=== PATIENT | female | born 1970 | race Caucasian/White ===

== ENCOUNTER 2017-05-31 05:30 | Day surgery (SDC) | payer BC ==
[~2017-05-31] VITALS: Ht 167.6 cm; Wt 80.7 kg
[2017-05-31] MEDS ORDERED: KETOROLAC TROMETHAMINE 30 MG VIAL IVP ONE (07:16)
[2017-05-31] MEDS ORDERED: PROPOFOL 200MG/ 20ML VIAL (DIPRIVAN) IV ONE (07:16)
[2017-05-31] MEDS ORDERED: SEVOFLURANE 15 MIN GAS INH ONE (07:16)
[2017-05-31] MEDS ORDERED: BUPIVACAINE /EPINEPHRINE/PF 0.5% 30 ML VIAL INJ ONE (07:16)
[2017-05-31] MEDS ORDERED: fentaNYL CITRATE/PF 100 MCG/2 ML AMP IVP ONE (07:16)
[2017-05-31] MEDS ORDERED: DEXAMETHASONE SOD PHOSPHATE 4 MG/ML VIAL IVP ONE (07:16)
[2017-05-31] MEDS ORDERED: MIDAZOLAM HCL 5 MG/5 ML VIAL IVP ONE (07:16)
[2017-05-31] MEDS ORDERED: LR 1,000 ML IV.SOLN IV ONE (07:16)
[2017-05-31] MEDS ORDERED: NS 1000 ML BAG IV ONE (07:16)
[2017-05-31] MEDS ORDERED: LR 1,000 ML IV ONE (08:21)
[2017-05-31] MEDS ORDERED: NALOXONE HCL 0.4 MG/ML AMP (NARCAN) IVP PRN (08:30)
[2017-05-31] MEDS ORDERED: NALBUPHINE HCL 10 MG/ML AMP IVP PRN (08:30)
[2017-05-31] MEDS ORDERED: DIPHENHYDRAMINE INJ 50 MG/ML VIAL IVP PRN (08:30)
[2017-05-31] MEDS ORDERED: ONDANSETRON HCL 4 MG/2 ML VIAL IVP PRN ×3 (08:30→10:00)
[2017-05-31] MEDS ORDERED: ePHEDrine sulfate 50 MG/ML VIAL IVP PRN (08:30)
[2017-05-31] MEDS ORDERED: PROMETHAZINE HCL 25 MG/ML AMP IM PRN ×2 (10:00)
[2017-05-31] MEDS: fentaNYL CITRATE/PF 100 MCG/2 ML AMP IVP PRN ×2 (10:00→10:08)
[2017-05-31] MEDS ORDERED: OXYCODONE/ACETAMINOPHEN 5-325 TABLET PO PRN ×2 (10:00)
[2017-05-31] MEDS ORDERED: IBUPROFEN 600 MG TABLET PO PRN (10:00)
[2017-05-31] MEDS ORDERED: fentaNYL CITRATE/PF 100 MCG/2 ML AMP ONE (10:10)
[2017-05-31 10:25] VITALS: BP_SYST 105
== END 2017-05-31 12:10 | disposition home or self-care (01) ==
LOC: SMU 05:30 → SDS 05:30
PROVIDERS: ATTEND Obstetrics & Gynecology
DX: D25.9 Leiomyoma of uterus, unspecified (principal); N80.1 Endometriosis of ovary; G89.29 Other chronic pain; E55.9 Vitamin D deficiency, unspecified; Z90.49 Acquired absence of other specified parts of digestive tract
CPT/HCPCS: 36415; 58558; 58661; 86886; 86900; 86901; 88305; C1727; J1100; J1885; J2250; J2704; J3010; J3490; J7030; J7120; 88302